=== PATIENT | male | born 1965 | race Caucasian/White ===

== ENCOUNTER 2020-12-12 20:34 | Emergency (ER) | payer SELFPAY ==
--- NOTE | 2020-12-12 20:57 | EDM.PDOC ---
ED HPI GENERAL MEDICAL PROBLEM - General Stated Complaint: [facility] Time Seen by Provider: 12/12/20 20:36 Source of Information: Reports: EMS History Limitations: Reports: Altered Mental Status - History of Present Illness INITIAL COMMENTS - FREE TEXT/NARRATIVE: A medical alert was called for this patient. Mr. Obrien is a 55-year-old gentleman who is now brought to the ED by EMS with a report that the neighbors called for a welfare check, after not seeing him for 2 or 3 days. He is reportedly an alcoholic. Police found him on the floor. EMS found him on his hands and knees with an SpO2 of 77% on room air, 98% on a nonrebreather mask. Accu-Chek was 22. 1 amp of D50 was given per EMS prior to arrival to the ED. Upon arrival to the ED, the patient was initially found to be slightly tachycardic at 101 bpm and slightly tachypneic at 24 rpm. He was otherwise hemodynamically stable, afebrile, saturating 100% on a nonrebreather mask. He is disheveled and covered in feces. He is moaning, but not answering any questions or following any commands. It appears that the patient has never been to this facility before, therefore we have no record of his PMHx, PSHx, or SocHx, and because he is noncommunicative at this time, we are unable to obtain a recent ROS. It is not known if the patient has a PCP. It is not known if the patient has received a COVID vaccination or influenza vaccination. - Related Data Allergies Allergy/AdvReac Type Severity Reaction Status Date / Time No Known Allergies Allergy Verified 12/13/20 00:39 Home Meds: Home Meds . [Unable to Verify Home Med List] 12/12/20 [History] ED ROS GENERAL - Review of Systems Review Of Systems: Unable To Obtain Reason Not Obtained: AMS ED EXAM, GENERAL - Physical Exam Exam: See Below Exam Limited By: No Limitations General Appearance: WD/WN, Obtunded (moaning, but not following any commands), Other (Disheveled, covered with stool) Eye Exam: Bilateral Eye: Abnormal Pupil (Mydriasis), EOMI, Other (Scleral icterus) Ears: Normal External Exam Nose: Normal Inspection Throat/Mouth: Normal Inspection, Normal Lips, No Airway Compromise Head: Atraumatic, Normocephalic Neck: Normal Inspection, Supple Respiratory/Chest: No Respiratory Distress, Lungs Clear, Normal Breath Sounds, No Accessory Muscle Use Cardiovascular: Normal Peripheral Pulses, Regular Rate, Rhythm, No Edema, No Gallop, No JVD, No Murmur, No Rub Peripheral Pulses: 3+: Radial (L), Radial (R) GI/Abdominal: Normal Bowel Sounds, Soft, Non-Tender, No Abnormal Bruit, No Mass, Distended (not tense), Other (Abdominal wall striae) Rectal (Males) Exam: Black Stool, Heme + Stool Extremities: Normal Range of Motion, No Pedal Edema, Normal Capillary Refill, Other (Abrasions to bilteral anterior knees, Lt > Rt) Neurological: Other (Obtunded) Skin Exam: Warm, Dry, Intact, Normal Color, No Rash #1 Interpretation EKG Date: 12/12/20 Time: 20:48 Rhythm: NSR Rate (Beats/Min): 90 [place]: Normal P-Wave: Present (Likely 1st degree AVB) QRS: Other (Nonspecific IVCD) ST-T: Normal QT: Normal Comparison: NA - No Prior EKG Course - Vital Signs Last Recorded V/S: Last Vital Signs Temp 36.1 C 12/13/20 01:50 Pulse 104 H 12/13/20 01:50 Resp 30 H 12/13/20 01:50 BP 112/73 12/13/20 01:50 Pulse Ox 92 L 12/13/20 01:33 - Orders/Labs/Meds Orders: Active Orders 24 hr Category Date Time Status Accu Check [Blood Glucose Check, Bedside] [RC] ONETIME Care 12/12/20 20:48 Active Jackson Catheter Insertion [Insert Urinary Catheter] [OM. Care 12/12/20 21:00 Ordered PC] Q24H Urinary Catheter Assessment [RC] ASDIRECTED Care 12/12/20 20:54 Active Chest 1V Frontal [CR] Stat Exams 12/12/20 20:45 Taken Head wo Cont [CT] Stat Exams 12/12/20 22:41 Taken BLOOD CULTURE [MREF] Stat Lab 12/12/20 21:20 Received BLOOD CULTURE [MREF] Stat Lab 12/12/20 21:30 Received CULTURE URINE [MREF] Stat Lab 12/12/20 21:07 Received Dextrose 5%-0.9% NaCl [Dextrose 5%-Normal Saline] 1,000 Med 12/12/20 21:00 Active ml IV ASDIRECTED Pantoprazole [ProTONIX IV] 80 mg Med 12/12/20 23:15 Active Sodium Chloride 0.9% [Normal Saline] 100 ml IV Q10H Blood Culture x2 Reflex Set [OM.PC] Stat Ot 12/12/20 20:45 Ordered Transfuse PRBC [Transfuse Red Blood Cells] [COMM] Stat Ot 12/12/20 21:49 Ordered Transfuse Red Blood Cells [COMM] Stat Ot 12/12/20 21:51 Ordered Medication Orders Dextrose/Sodium Chloride (Dextrose 5%-Normal Saline) 1,000 mls @ 100 mls/hr IV ASDIRECTED ARTURO Last Admin: 12/12/20 21:27 Dose: 100 mls/hr Documented by: TOMMIE Pantoprazole Sodium 80 mg/ (Sodium Chloride) 100 mls @ 10 mls/hr IV Q10H ARTURO Last Admin: 12/12/20 23:45 Dose: 8 mg/hr, 10 mls/hr Documented by: TOMMIE Labs: Laboratory Tests 12/12/20 12/12/20 12/12/20 Range/Units 20:40 20:49 20:49 WBC (4.23-9.07) K/mm3 RBC (4.63-6.08) M/mm3 Hgb (13.7-17.5) gm/dl Hct (40.1-51.0) % MCV (79.0-92.2) fl MCH (25.7-32.2) pg MCHC (32.2-35.5) g/dl RDW Std Deviation (35.1-43.9) fL Plt Count (163-337) K/mm3 MPV (9.4-12.3) fl Neutrophils % (Manual) (40-60) % Band Neutrophils % (0-10) % Lymphocytes % (Manual) (20-40) % Atypical Lymphs % % Monocytes % (Manual) (2-10) % Eosinophils % (Manual) (0.8-7.0) % Basophils % (Manual) (0.2-1.2) Platelet Estimate Plt Morphology Comment Poikilocytosis Anisocytosis Macrocytosis Ovalocytes [place] Cells RBC Morph Comment PT 22.9 H (9.7-12.0) SECONDS INR 2.12 APTT 52.4 H (21.7-31.4) SECONDS D-Dimer, Quantitative > 35.20 H (0.19-0.50) mg/L Puncture Site ABG pH (7.35-7.45) ABG pCO2 (35.0-45.0) mmHg ABG pO2 (80.0-100.0) mmHg ABG HCO3 (22.0-26.0) meq/L ABG O2 Saturation (96.0-97.0) % ABG Base Excess (-2-2.0) A-a Gradient mmHg O2 Delivery Device Oxygen Flow Rate FiO2 (21.00-100.00) % Sodium 135 L (136-145) mEq/L Potassium 4.9 (3.5-5.1) mEq/L Chloride 98 (98-107) mEq/L Carbon Dioxide 14 L (21-32) mEq/L Anion Gap 27.9 H (5-15) BUN 61 H (7-18) mg/dL Creatinine 3.7 H (0.7-1.3) mg/dL Est Cr Clr Drug Dosing TNP Estimated GFR (MDRD) 17 (>60) mL/min BUN/Creatinine Ratio 16.5 (14-18) Glucose 160 H (70-99) mg/dL POC Glucose 73 (70-99) mg/dL Lactic Acid (0.4-2.0) mmol/L Calcium 8.1 L (8.5-10.1) mg/dL Magnesium 3.4 H (1.8-2.4) mg/dL Total Bilirubin 7.8 H (0.2-1.0) mg/dL AST 93 H (15-37) U/L ALT 26 (16-63) U/L Alkaline Phosphatase 39 L (46-116) U/L Ammonia (11-32) umol/L Troponin I 0.041 (0.00-0.056) ng/mL NT-Pro-B Natriuret Pep (0-125) pg/mL Total Protein 6.6 (6.4-8.2) g/dl Albumin 1.5 L (3.4-5.0) g/dl Globulin 5.1 gm/dL Albumin/Globulin Ratio 0.3 L (1-2) Urine Color (Yellow) Urine Appearance (Clear) Urine pH (5.0-8.0) Ur Specific [place] (1.005-1.030) Urine Protein (Negative) Urine Glucose (UA) (Negative) Urine Ketones (Negative) Urine Occult Blood (Negative) Urine Nitrite (Negative) Urine Bilirubin (Negative) Urine Urobilinogen (0.2-1.0) Ur Leukocyte Esterase (Negative) Urine RBC (0-5) /hpf Urine WBC (0-5) /hpf Ur Squamous Epith Cells (0-5) /hpf Urine Bacteria (FEW) /hpf Urine Mucus (FEW) /hpf Urine Opiates Screen (GMDQDF=551) Ur Buprenorphine Scrn (CUTOFF=10) Ur Oxycodone Screen (NUM2YN=659) Urine Methadone Screen (OCM6EI=994) Ur Propoxyphene Screen (HRNMFF=863) Ur Barbiturates Screen (MDISFV=543) Ur Tricyclics Screen (NKCFKQ=313) Ur Phencyclidine Scrn (CUTOFF=25) Ur Amphetamine Screen (CJOFIF=697) U Methamphetamines Scrn (TYPAEK=893) U Benzodiazepines Scrn (KDQSIC=293) U Cocaine Metab Screen (GMELDZ=610) U Marijuana (THC) Screen (CUTOFF=50) Ethyl Alcohol 0.00 (0.00) gm% Influenza Type A RNA (NEGATIVE) Influenza Type B RNA (NEGATIVE) SARS-CoV-2 RNA (ALEYDA) (NEGATIVE) Blood Type Gel Antibody Screen Crossmatch 12/12/20 12/12/20 12/12/20 Range/Units 20:49 20:49 20:52 WBC (4.23-9.07) K/mm3 RBC (4.63-6.08) M/mm3 Hgb (13.7-17.5) gm/dl Hct (40.1-51.0) % MCV (79.0-92.2) fl MCH (25.7-32.2) pg MCHC (32.2-35.5) g/dl RDW Std Deviation (35.1-43.9) fL Plt Count (163-337) K/mm3 MPV (9.4-12.3) fl Neutrophils % (Manual) (40-60) % Band Neutrophils % (0-10) % Lymphocytes % (Manual) (20-40) % Atypical Lymphs % % Monocytes % (Manual) (2-10) % Eosinophils % (Manual) (0.8-7.0) % Basophils % (Manual) (0.2-1.2) Platelet Estimate Plt Morphology Comment Poikilocytosis Anisocytosis Macrocytosis Ovalocytes Mohsen Cells RBC Morph Comment PT (9.7-12.0) SECONDS INR APTT (21.7-31.4) SECONDS D-Dimer, Quantitative (0.19-0.50) mg/L Puncture Site Rt radial ABG pH 7.22 L (7.35-7.45) ABG pCO2 33.5 L (35.0-45.0) mmHg ABG pO2 64.0 L (80.0-100.0) mmHg ABG HCO3 13.3 L (22.0-26.0) meq/L ABG O2 Saturation 84.4 L (96.0-97.0) % ABG Base Excess -12.8 L (-2-2.0) A-a Gradient 94 mmHg O2 Delivery Device Nasal cannula Oxygen Flow Rate 2.0 FiO2 28.00 (21.00-100.00) % Sodium (136-145) mEq/L Potassium (3.5-5.1) mEq/L Chloride (98-107) mEq/L Carbon Dioxide (21-32) mEq/L Anion Gap (5-15) BUN (7-18) mg/dL Creatinine (0.7-1.3) mg/dL Est Cr Clr Drug Dosing Estimated GFR (MDRD) (>60) mL/min BUN/Creatinine Ratio (14-18) Glucose (70-99) mg/dL POC Glucose (70-99) mg/dL Lactic Acid 16.6 H* (0.4-2.0) mmol/L Calcium (8.5-10.1) mg/dL Magnesium (1.8-2.4) mg/dL Total Bilirubin (0.2-1.0) mg/dL AST (15-37) U/L ALT (16-63) U/L Alkaline Phosphatase (46-116) U/L Ammonia (11-32) umol/L Troponin I (0.00-0.056) ng/mL NT-Pro-B Natriuret Pep 1745 H (0-125) pg/mL Total Protein (6.4-8.2) g/dl Albumin (3.4-5.0) g/dl Globulin gm/dL Albumin/Globulin Ratio (1-2) Urine Color (Yellow) Urine Appearance (Clear) Urine pH (5.0-8.0) Ur Specific [place] (1.005-1.030) Urine Protein (Negative) Urine Glucose (UA) (Negative) Urine Ketones (Negative) Urine Occult Blood (Negative) Urine Nitrite (Negative) Urine Bilirubin (Negative) Urine Urobilinogen (0.2-1.0) Ur Leukocyte Esterase (Negative) Urine RBC (0-5) /hpf Urine WBC (0-5) /hpf Ur Squamous Epith Cells (0-5) /hpf Urine Bacteria (FEW) /hpf Urine Mucus (FEW) /hpf Urine Opiates Screen (ZDLWAX=173) Ur Buprenorphine Scrn (CUTOFF=10) Ur Oxycodone Screen (XCZ4WB=476) Urine Methadone Screen (JWO6UE=390) Ur Propoxyphene Screen (KWTWIQ=931) Ur Barbiturates Screen (IPOUQG=366) Ur Tricyclics Screen (LPHQZX=549) Ur Phencyclidine Scrn (CUTOFF=25) Ur Amphetamine Screen (UIVOUI=640) U Methamphetamines Scrn (DDNJCM=463) U Benzodiazepines Scrn (VQQGCF=339) U Cocaine Metab Screen (PHQDGA=677) U Marijuana (THC) Screen (CUTOFF=50) Ethyl Alcohol (0.00) gm% Influenza Type A RNA (NEGATIVE) Influenza Type B RNA (NEGATIVE) SARS-CoV-2 RNA (ALEYDA) (NEGATIVE) Blood Type Gel Antibody Screen Crossmatch 12/12/20 12/12/20 12/12/20 Range/Units 21:00 21:07 21:07 WBC (4.23-9.07) K/mm3 RBC (4.63-6.08) M/mm3 Hgb (13.7-17.5) gm/dl Hct (40.1-51.0) % MCV (79.0-92.2) fl MCH (25.7-32.2) pg MCHC (32.2-35.5) g/dl RDW Std Deviation (35.1-43.9) fL Plt Count (163-337) K/mm3 MPV (9.4-12.3) fl Neutrophils % (Manual) (40-60) % Band Neutrophils % (0-10) % Lymphocytes % (Manual) (20-40) % Atypical Lymphs % % Monocytes % (Manual) (2-10) % Eosinophils % (Manual) (0.8-7.0) % Basophils % (Manual) (0.2-1.2) Platelet Estimate Plt Morphology Comment Poikilocytosis Anisocytosis Macrocytosis Ovalocytes [place] Cells RBC Morph Comment PT (9.7-12.0) SECONDS INR APTT (21.7-31.4) SECONDS D-Dimer, Quantitative (0.19-0.50) mg/L Puncture Site ABG pH (7.35-7.45) ABG pCO2 (35.0-45.0) mmHg ABG pO2 (80.0-100.0) mmHg ABG HCO3 (22.0-26.0) meq/L ABG O2 Saturation (96.0-97.0) % ABG Base Excess (-2-2.0) A-a Gradient mmHg O2 Delivery Device Oxygen Flow Rate FiO2 (21.00-100.00) % Sodium (136-145) mEq/L Potassium (3.5-5.1) mEq/L Chloride (98-107) mEq/L Carbon Dioxide (21-32) mEq/L Anion Gap (5-15) BUN (7-18) mg/dL Creatinine (0.7-1.3) mg/dL Est Cr Clr Drug Dosing Estimated GFR (MDRD) (>60) mL/min BUN/Creatinine Ratio (14-18) Glucose (70-99) mg/dL POC Glucose 103 H (70-99) mg/dL Lactic Acid (0.4-2.0) mmol/L Calcium (8.5-10.1) mg/dL Magnesium (1.8-2.4) mg/dL Total Bilirubin (0.2-1.0) mg/dL AST (15-37) U/L ALT (16-63) U/L Alkaline Phosphatase (46-116) U/L Ammonia (11-32) umol/L Troponin I (0.00-0.056) ng/mL NT-Pro-B Natriuret Pep (0-125) pg/mL Total Protein (6.4-8.2) g/dl Albumin (3.4-5.0) g/dl Globulin gm/dL Albumin/Globulin Ratio (1-2) Urine Color Brown H (Yellow) Urine Appearance Slt cloudy H (Clear) Urine pH 5.5 (5.0-8.0) Ur Specific [place] 1.020 (1.005-1.030) Urine Protein Trace H (Negative) Urine Glucose (UA) Trace H (Negative) Urine Ketones Trace H (Negative) Urine Occult Blood Negative (Negative) Urine Nitrite Positive H (Negative) Urine Bilirubin 3+ H (Negative) Urine Urobilinogen >=8.0 H (0.2-1.0) Ur Leukocyte Esterase Negative (Negative) Urine RBC 0-5 (0-5) /hpf Urine WBC 0-5 (0-5) /hpf Ur Squamous Epith Cells 0-5 (0-5) /hpf Urine Bacteria Moderate H (FEW) /hpf Urine Mucus Few (FEW) /hpf Urine Opiates Screen (WTIMPC=659) Ur Buprenorphine Scrn (CUTOFF=10) Ur Oxycodone Screen (NKH7YU=821) Urine Methadone Screen (UOI3UO=448) Ur Propoxyphene Screen (JJHVYJ=116) Ur Barbiturates Screen (GHDWIF=449) Ur Tricyclics Screen (LNTCLU=351) Ur Phencyclidine Scrn (CUTOFF=25) Ur Amphetamine Screen (XIJLND=411) U Methamphetamines Scrn (LTXLQW=346) U Benzodiazepines Scrn (ENUBRH=157) U Cocaine Metab Screen (LGRRBI=453) U Marijuana (THC) Screen (CUTOFF=50) Ethyl Alcohol (0.00) gm% Influenza Type A RNA Negative (NEGATIVE) Influenza Type B RNA Negative (NEGATIVE) SARS-CoV-2 RNA (ALEYDA) Negative (NEGATIVE) Blood Type Gel Antibody Screen Crossmatch 12/12/20 12/12/20 12/12/20 Range/Units 21:07 21:20 21:20 WBC 9.09 H (4.23-9.07) K/mm3 RBC 1.63 L (4.63-6.08) M/mm3 Hgb 6.4 L* (13.7-17.5) gm/dl Hct 20.2 L (40.1-51.0) % MCV 123.9 H (79.0-92.2) fl MCH 39.3 H (25.7-32.2) pg MCHC 31.7 L (32.2-35.5) g/dl RDW Std Deviation 69.5 H (35.1-43.9) fL Plt Count 126 L (163-337) K/mm3 MPV 9.8 (9.4-12.3) fl Neutrophils % (Manual) 74 H (40-60) % Band Neutrophils % 0 (0-10) % Lymphocytes % (Manual) 23 (20-40) % Atypical Lymphs % 0 % Monocytes % (Manual) 3 (2-10) % Eosinophils % (Manual) 0 L (0.8-7.0) % Basophils % (Manual) 0 L (0.2-1.2) Platelet Estimate Decreased Plt Morphology Comment See note Poikilocytosis 1+ slight Anisocytosis 3+ marked Macrocytosis 3+ marked Ovalocytes 1+ slight [place] Cells 1+ slight RBC Morph Comment Not Reportable PT (9.7-12.0) SECONDS INR APTT (21.7-31.4) SECONDS D-Dimer, Quantitative (0.19-0.50) mg/L Puncture Site ABG pH (7.35-7.45) ABG pCO2 (35.0-45.0) mmHg ABG pO2 (80.0-100.0) mmHg ABG HCO3 (22.0-26.0) meq/L ABG O2 Saturation (96.0-97.0) % ABG Base Excess (-2-2.0) A-a Gradient mmHg O2 Delivery Device Oxygen Flow Rate FiO2 (21.00-100.00) % Sodium (136-145) mEq/L Potassium (3.5-5.1) mEq/L Chloride (98-107) mEq/L Carbon Dioxide (21-32) mEq/L Anion Gap (5-15) BUN (7-18) mg/dL Creatinine (0.7-1.3) mg/dL Est Cr Clr Drug Dosing Estimated GFR (MDRD) (>60) mL/min BUN/Creatinine Ratio (14-18) Glucose (70-99) mg/dL POC Glucose (70-99) mg/dL Lactic Acid (0.4-2.0) mmol/L Calcium (8.5-10.1) mg/dL Magnesium (1.8-2.4) mg/dL Total Bilirubin (0.2-1.0) mg/dL AST (15-37) U/L ALT (16-63) U/L Alkaline Phosphatase (46-116) U/L Ammonia (11-32) umol/L Troponin I (0.00-0.056) ng/mL NT-Pro-B Natriuret Pep (0-125) pg/mL Total Protein (6.4-8.2) g/dl Albumin (3.4-5.0) g/dl Globulin gm/dL Albumin/Globulin Ratio (1-2) Urine Color (Yellow) Urine Appearance (Clear) Urine pH (5.0-8.0) Ur Specific [place] (1.005-1.030) Urine Protein (Negative) Urine Glucose (UA) (Negative) Urine Ketones (Negative) Urine Occult Blood (Negative) Urine Nitrite (Negative) Urine Bilirubin (Negative) Urine Urobilinogen (0.2-1.0) Ur Leukocyte Esterase (Negative) Urine RBC (0-5) /hpf Urine WBC (0-5) /hpf Ur Squamous Epith Cells (0-5) /hpf Urine Bacteria (FEW) /hpf Urine Mucus (FEW) /hpf Urine Opiates Screen Negative (TGUGXS=923) Ur Buprenorphine Scrn Negative (CUTOFF=10) Ur Oxycodone Screen Negative (PYS6LG=806) Urine Methadone Screen Negative (YSV9ZQ=849) Ur Propoxyphene Screen Negative (LHKOWK=460) Ur Barbiturates Screen Negative (QWHDDZ=122) Ur Tricyclics Screen Negative (HLBDDR=356) Ur Phencyclidine Scrn Negative (CUTOFF=25) Ur Amphetamine Screen Negative (GCIGEH=847) U Methamphetamines Scrn Negative (YYUOVE=182) U Benzodiazepines Scrn Negative (XQADAT=762) U Cocaine Metab Screen Negative (INBEZH=126) U Marijuana (THC) Screen Negative (CUTOFF=50) Ethyl Alcohol (0.00) gm% Influenza Type A RNA (NEGATIVE) Influenza Type B RNA (NEGATIVE) SARS-CoV-2 RNA (ALEYDA) (NEGATIVE) Blood Type O POSITIVE Gel Antibody Screen Negative Crossmatch See Detail 12/12/20 12/12/20 Range/Units 22:42 22:42 WBC (4.23-9.07) K/mm3 RBC (4.63-6.08) M/mm3 Hgb (13.7-17.5) gm/dl Hct (40.1-51.0) % MCV (79.0-92.2) fl MCH (25.7-32.2) pg MCHC (32.2-35.5) g/dl RDW Std Deviation (35.1-43.9) fL Plt Count (163-337) K/mm3 MPV (9.4-12.3) fl Neutrophils % (Manual) (40-60) % Band Neutrophils % (0-10) % Lymphocytes % (Manual) (20-40) % Atypical Lymphs % % Monocytes % (Manual) (2-10) % Eosinophils % (Manual) (0.8-7.0) % Basophils % (Manual) (0.2-1.2) Platelet Estimate Plt Morphology Comment Poikilocytosis Anisocytosis Macrocytosis Ovalocytes Mohsen Cells RBC Morph Comment PT (9.7-12.0) SECONDS INR APTT (21.7-31.4) SECONDS D-Dimer, Quantitative (0.19-0.50) mg/L Puncture Site ABG pH (7.35-7.45) ABG pCO2 (35.0-45.0) mmHg ABG pO2 (80.0-100.0) mmHg ABG HCO3 (22.0-26.0) meq/L ABG O2 Saturation (96.0-97.0) % ABG Base Excess (-2-2.0) A-a Gradient mmHg O2 Delivery Device Oxygen Flow Rate FiO2 (21.00-100.00) % Sodium (136-145) mEq/L Potassium (3.5-5.1) mEq/L Chloride (98-107) mEq/L Carbon Dioxide (21-32) mEq/L Anion Gap (5-15) BUN (7-18) mg/dL Creatinine (0.7-1.3) mg/dL Est Cr Clr Drug Dosing Estimated GFR (MDRD) (>60) mL/min BUN/Creatinine Ratio (14-18) Glucose (70-99) mg/dL POC Glucose (70-99) mg/dL Lactic Acid 18.0 H* (0.4-2.0) mmol/L Calcium (8.5-10.1) mg/dL Magnesium (1.8-2.4) mg/dL Total Bilirubin (0.2-1.0) mg/dL AST (15-37) U/L ALT (16-63) U/L Alkaline Phosphatase (46-116) U/L Ammonia 299 H (11-32) umol/L Troponin I (0.00-0.056) ng/mL NT-Pro-B Natriuret Pep (0-125) pg/mL Total Protein (6.4-8.2) g/dl Albumin (3.4-5.0) g/dl Globulin gm/dL Albumin/Globulin Ratio (1-2) Urine Color (Yellow) Urine Appearance (Clear) Urine pH (5.0-8.0) Ur Specific [place] (1.005-1.030) Urine Protein (Negative) Urine Glucose (UA) (Negative) Urine Ketones (Negative) Urine Occult Blood (Negative) Urine Nitrite (Negative) Urine Bilirubin (Negative) Urine Urobilinogen (0.2-1.0) Ur Leukocyte Esterase (Negative) Urine RBC (0-5) /hpf Urine WBC (0-5) /hpf Ur Squamous Epith Cells (0-5) /hpf Urine Bacteria (FEW) /hpf Urine Mucus (FEW) /hpf Urine Opiates Screen (AOJIIQ=311) Ur Buprenorphine Scrn (CUTOFF=10) Ur Oxycodone Screen (YPP2XQ=058) Urine Methadone Screen (RJU5HC=730) Ur Propoxyphene Screen (PLTPGU=411) Ur Barbiturates Screen (QKOYTQ=253) Ur Tricyclics Screen (AYLWND=793) Ur Phencyclidine Scrn (CUTOFF=25) Ur Amphetamine Screen (WOHXFN=287) U Methamphetamines Scrn (SUHHTS=521) U Benzodiazepines Scrn (LHUSHE=525) U Cocaine Metab Screen (QQFGOQ=413) U Marijuana (THC) Screen (CUTOFF=50) Ethyl Alcohol (0.00) gm% Influenza Type A RNA (NEGATIVE) Influenza Type B RNA (NEGATIVE) SARS-CoV-2 RNA (ALEYDA) (NEGATIVE) Blood Type Gel Antibody Screen Crossmatch Meds: Medications Generic Name Dose Route Start Last Admin Trade Name Freq PRN Reason Stop Dose Admin Dextrose/Sodium Chloride 1,000 mls @ 100 mls/hr 12/12/20 21:00 12/12/20 21:27 Dextrose 5%-Normal Saline IV 100 mls/hr ASDIRECTED ARTURO Administration Pantoprazole Sodium 80 mg/ 100 mls @ 10 mls/hr 12/12/20 23:15 12/12/20 23:45 Sodium Chloride IV 8 mg/hr Q10H ARTURO 10 mls/hr Administration 8 MG/HR Discontinued Medications Generic Name Dose Route Start Last Admin Trade Name Cristina PRN Reason Stop Dose Admin Ceftriaxone Sodium 1 gm/ 100 mls @ 200 mls/hr 12/12/20 23:26 12/12/20 23:39 Sodium Chloride IV 12/12/20 23:55 200 mls/hr ONETIME ONE Administration Phytonadione 10 mg/ Sodium 51 mls @ 100 mls/hr 12/12/20 23:27 12/12/20 23:39 Chloride IV 12/12/20 23:57 100 mls/hr NOW ONE Administration Pantoprazole Sodium 80 mg 12/12/20 23:04 12/12/20 23:44 Pantoprazole 40 Mg Vial IVPUSH 12/12/20 23:05 80 mg BOLUS ONE Administration Thiamine HCl 100 mg 12/12/20 22:29 12/12/20 22:45 Thiamine 200 Mg/2 Ml Mdv IVPUSH 12/12/20 22:30 100 mg ONETIME STA Administration - Re-Assessments/Exams Free Text/Narrative Re-Assessment/Exam: 12/12/20 20:51 An Accu-Chek upon arrival was 73. He had defecated black, tarry stool. It is grossly Hemoccult positive. He has scleral icterus and clinical evidence of ascites. His nonrebreather mask was replaced with a nasal cannula, and the patient is currently saturating 95% on 2 L of oxygen per nasal cannula. A Jackson catheter will be placed. I have ordered an extensive work-up, including numerous blood tests, 2 sets of blood cultures, an ABG, a urinalysis and urine drug screen, a swab for the SARS-CoV-2 virus and influenza A + B viruses, a portable chest x-ray, and an ECG. In the meantime, the patient will be given D5 NS at 100 mL/h. 12/12/20 21:05 Without of benefit of the chemistry panel, the patient's ABG appears to demonstrate an [id number] metabolic acidosis. 12/12/20 21:47 Portable chest radiograph reviewed. Poor inspiratory effort. The cardiac silhouette is within normal limits. No pulmonary vascular congestion. No pleural effusions seen on this AP view. There appears to be atelectasis versus infiltrate at the right base, and a possible infiltrate by the left hilum. No pneumothorax. Formal read per the Radiologist pending. The patient's CBC is remarkable for mild leukocytosis of 9.09, with an H/H depressed at 6.4/20.2, and thrombocytopenia of 126,000. His CMP is remarkable for slight hyponatremia of 135, a bicarbonate depressed at 14 with an anion gap elevated at 27.9, a BUN/Cr elevated at 6.1/3.7, and hyperglycemia of 160. His TBil is elevated at 7.8. His AST slightly elevated at 63, with an ALT normal at 26, with the remainder of his CMP being unremarkable. His magnesium level is elevated at 3.4. His lactic acid level is substantially elevated at 16.6. His troponin is within normal limits at 0.041. His pro-BNP is modestly elevated at 1745. His D-dimer is substantially elevated at > 35.20. His PT/INR are elevated at 22.9/2.12, with a PTT elevated at 52.4. His EtOH level is 0.00. His ABG represents a primary anion gap metabolic acidosis with a secondary respiratory acidosis and metabolic alkalosis. The patient's urinalysis, urine drug screen, and swabs for the SARS-CoV-2 virus and influenza A + B are still pending. Based on the above, I have ordered a type and screen, and transfusion of 2 units of PRBCs and 2 units of FFP. 12/12/20 22:20 The patient's urinalysis is remarkable for slightly cloudy appearance, negative occult blood with 0-5 RBCs, negative leukocyte esterase with 0-5 WBCs, nitrate positive with moderate bacteria, and 0-5 squamous epithelial cells. His urine drug screen is completely negative. His swab for the SARS-CoV-2 virus and influenza A + B viruses is negative for all. Based on the above, I will order a urine culture. The patient appears to have cirrhosis, leading to an elevated D-dimer, coags, and TBill, and renal failure, possibly due to hepatorenal syndrome, leading to a lactic acidosis, anemia, elevated pro-BNP, and contributing to his elevated D- dimer. He also appears to have a GI bleed, likely upper GI bleed, given his melenic stools. I do not see evidence for an infectious process/sepsis. He is likely intravascularly depleted, but high-volume IV fluid would not likely benefit him, given his cirrhosis with likely AV malformations, and hypoalbuminemia - the vast majority of any IV fluid given would be 3rd-spaced. His altered mental status is likely due to hepatic encephalopathy; I will order an ammonia level and CT of the head without contrast. He will be given IV Protonix and started on a Protonix drip to address his GI bleed. 12/12/20 23:17 The patient's ammonia level is substantially elevated at 299. 12/12/20 23:27 Case discussed with Philomena at [facility] One call at 22:37. Unfortunately, they have no medicine or ICU beds, although it is possible they will have an ICU bed in the morning. [facility] Call called at 22:37. Case discussed with Frank at [facility] One Call at 22:52. Case then discussed with Dr. Javier, Hospitalist at [facility], at 23:13. Dr. Briggs, [employer] Mechanic at [facility], added to the call at 23:17. He recommended that we start the patient on IV Rocephin for SBP prophylaxis, and give 10 mg of vitamin K. He felt that with an ammonia level as high as it is, the patient will likely need to be intubated, and he may benefit from CRRT. Unfortunately, however, they do not have any ICU beds available. 12/12/20 23:43 CT/head without contrast is read by [facility] as: 1. No acute intracranial abnormality. 2. Mild cortical atrophy is present. 12/12/20 23:51 Case discussed at length with the patient's brother, Boaz Obrien, as well as Boaz's , at 23:35. Boaz confirmed that Bobby is a long-term drinker, and has refused treatment in the past. He is living in his mother's basement, has no money, and no insurance. Boaz, however, does not feel that he can take responsi bility for his brother, and requested that I do what I think is best. He mentioned also that their sister, Nicole Shipley, works in dietary at this [facility], that she is aware of Bobby being here in the ED, and that she will be coming on in the morning. Boaz and his felt that the best course of action would be for me to see if I can transfer Bobby to either [place] or [place], but that if I cannot, to initiate comfort care measures, instead of heroics. 12/13/20 00:03 The patient's repeat lactic acid level increased to 18.0. 12/13/20 00:12 Case discussed with Rosy at [facility] at midnight. Case then discussed with Dr. Yeung, [employer] Mechanic at [facility], and 00:07. He accepted the patient for transfer to their facility. He too questioned w hether or not the patient should be intubated, but understood my reluctance to do so. 12/13/20 00:18 Portable chest x-ray and CT/head images pushed to [facility] at 00:18. 12/13/20 00:21 I spoke again to Boaz Obrien. He stated that he has in the meantime spoken to Bobby's sons, who live here in [place], and they may want to come by and see their dad before he is transported. 12/13/20 01:56 The patient's 2 sons and daughter are here in the ED. I discussed the situation and answered all questions. Departure - Departure Time of Disposition: 00:13 Disposition: DC/Tfer to Acute Hospital 02 Condition: Critical Clinical Impression: High anion gap metabolic acidosis, Lactic acidosis, Hepatic encephalopathy, Renal failure, Hyperbilirubinemia, Cirrhosis, Upper GI bleed, Coagulopathy, Severe anemia - Discharge Information *PRESCRIPTION DRUG MONITORING PROGRAM REVIEWED*: No *COPY OF PRESCRIPTION DRUG MONITORING REPORT IN PATIENT SYLVESTER: No Referrals: PCP,None [Primary Care Provider] - Sepsis Event Note (ED) - Focused Exam Vital Signs: Vital Signs Temp Temp Pulse Resp BP Pulse Ox 12/13/20 01:50 36.1 C 104 H 30 H 112/73 12/13/20 01:35 36.3 C 101 H 30 H 121/71 12/13/20 01:33 36.2 C 102 H 18 121/72 92 L 12/13/20 01:15 36.0 C L 103 H 32 H 104/63 12/13/20 00:27 36.4 C 100 30 H 107/68 12/12/20 23:34 36.1 C 98 29 H 110/63 12/12/20 23:30 36.2 C 97 27 H 102/66 12/12/20 23:19 36.4 C 96 26 H 106/68 12/12/20 22:46 36.8 C 94 106/68 90 L 12/12/20 21:19 35.1 C L 101 H 24 H 124/75 100 - My Orders Last 24 Hours: My Active Orders 12/12/20 20:45 Chest 1V Frontal [CR] Stat Blood Culture x2 Reflex Set [OM.PC] Stat 12/12/20 20:48 Accu Check [Blood Glucose Check, Bedside] [RC] ONETIME 12/12/20 20:54 Urinary Catheter Assessment [RC] ASDIRECTED 12/12/20 21:00 Jackson Catheter Insertion [Insert Urinary Catheter] [OM.PC] Q24H Dextrose 5%-0.9% NaCl [Dextrose 5%-Normal Saline] 1,000 ml IV ASDIRECTED 12/12/20 21:07 CULTURE URINE [MREF] Stat 12/12/20 21:20 BLOOD CULTURE [MREF] Stat 12/12/20 21:30 BLOOD CULTURE [MREF] Stat 12/12/20 21:49 Transfuse PRBC [Transfuse Red Blood Cells] [COMM] Stat 12/12/20 21:51 Transfuse Red Blood Cells [COMM] Stat 12/12/20 22:41 Head wo Cont [CT] Stat 12/12/20 23:15 Pantoprazole [ProTONIX IV] 80 mg Sodium Chloride 0.9% [Normal Saline] 100 ml IV Q10H - Assessment/Plan Last 24 Hours: My Active Orders 12/12/20 20:45 Chest 1V Frontal [CR] Stat Blood Culture x2 Reflex Set [OM.PC] Stat 12/12/20 20:48 Accu Check [Blood Glucose Check, Bedside] [RC] ONETIME 12/12/20 20:54 Urinary Catheter Assessment [RC] ASDIRECTED 12/12/20 21:00 Jackson Catheter Insertion [Insert Urinary Catheter] [OM.PC] Q24H Dextrose 5%-0.9% NaCl [Dextrose 5%-Normal Saline] 1,000 ml IV ASDIRECTED 12/12/20 21:07 CULTURE URINE [MREF] Stat 12/12/20 21:20 BLOOD CULTURE [MREF] Stat 12/12/20 21:30 BLOOD CULTURE [MREF] Stat 12/12/20 21:49 Transfuse PRBC [Transfuse Red Blood Cells] [COMM] Stat 12/12/20 21:51 Transfuse Red Blood Cells [COMM] Stat 12/12/20 22:41 Head wo Cont [CT] Stat 12/12/20 23:15 Pantoprazole [ProTONIX IV] 80 mg Sodium Chloride 0.9% [Normal Saline] 100 ml IV Q10H
[2020-12-12] MEDS ORDERED: Dextrose 5%-0.9% NaCl 1,000 ML IV SCH (21:00)
[2020-12-12 21:50] LABS: CORONAVIRUS COVID-19 NAA NEGATIVE (NEGATIVE)
[2020-12-12] MEDS ORDERED: Thiamine 200 MG/2 ML MDV IVPUSH STA (22:29)
[2020-12-12] MEDS ORDERED: Pantoprazole 40 MG Vial IVPUSH ONE (23:04)
[2020-12-12] MEDS ORDERED: Pantoprazole 80 MG in Sodium Chloride 0.9% 100 ML IV SCH (23:15)
[2020-12-12] MEDS ORDERED: cefTRIAXone 1 GM in Sodium Chloride 0.9% 100 ML IV ONE (23:26)
[2020-12-12] MEDS ORDERED: Phytonadione 10 MG in Sodium Chloride 0.9% 50 ML IV ONE (23:27)
[2020-12-13] MEDS ORDERED: 50% Dextrose in Water 50 ML Syringe ONE (02:13)
[2020-12-13] MEDS ORDERED: 50% Dextrose in Water 50 ML Syringe IVPUSH STA (02:22)
--- NOTE | 2020-12-13 06:32 | CR ---
Chest: Portable view of the chest was obtained. Comparison: No prior chest imaging is available. Heart size is normal. Prominent left hilum is seen. Uncertain if this represents superimposed mass or adenopathy or represents a pneumonia. Linear density is seen within the right lung base either due to atelectasis or scarring. Lungs otherwise are clear. Bony structure shows degenerative endplate spurring within the spine. Impression: 1. Left hilar abnormality as well as linear density within the right lung base. I believe a contrast-enhanced chest CT would be indicated to rule out left hilar mass. Diagnostic code #3
--- NOTE | 2020-12-13 06:32 | CT ---
Head CT Technique: Multiple axial sections through the brain were obtained. Intravenous contrast was not utilized. Reconstructed coronal and sagittal images were obtained. Comparison: No prior intracranial imaging is available. Findings: Ventricles along with basal cisterns and sulci over the convexities are moderately prominent. No abnormal parenchymal densities are seen. No evidence of intracranial hemorrhage is seen. No midline shift or mass-effect is seen. Bone window settings were reviewed. Visualized paranasal sinuses and mastoid sinuses are clear. No acute calvarial abnormality is appreciated. Impression: 1. Fairly prominent atrophy for a patient of this age. 2. No acute intracranial abnormality is appreciated. Diagnostic code #2 I agree with preliminary report from [facility] finalized on 12/13/20, 12:18 AM CDT, code 1
== END 2020-12-13 04:00 ==
LOC: JD.ED 20:34
DX: K92.2 Gastrointestinal hemorrhage, unspecified (principal); K72.90 Hepatic failure, unspecified without coma; N19 Unspecified kidney failure; E87.2 Acidosis; E80.6 Other disorders of bilirubin metabolism; K74.60 Unspecified cirrhosis of liver; D64.9 Anemia, unspecified; D68.9 Coagulation defect, unspecified; Z20.822 Contact with and (suspected) exposure to COVID-19
CPT/HCPCS: 0240U; 36415; 36430; 36600; 51702; 70450; 71045; 80053; 80306; 80307; 81001; 82140; 82803; 82947; 83605; 83735; 83880; 84484; 85007; 85027; 85379; 85610; 85730; 86850; 86900; 86901; 86922; 87040; 87086; 93005; 96365; 96366; 96368; 96375; 99285; C9113; J0696; J3411; J3430; J7042; P9016; P9017